=== PATIENT | male | born 1995 | race Caucasian/White ===

== ENCOUNTER 2017-02-20 10:33 | Emergency (ER) | payer BC ==
[~2017-02-20] VITALS: Ht 175.3 cm; Wt 67.0 kg
[2017-02-20 10:38] VITALS: BP 148/95; PULSE 90; RESP 16; TEMP 98.6; O2SAT 98
[2017-02-20] MEDS ORDERED: OXYMETAZOLINE HCL 0.05% 15 ML NASAL SPRAY NASAL ONE (10:45)
--- NOTE | 2017-02-20 10:50 | PD ---
HPI . Epistaxis Chief Complaint: Nosebleed Time Seen by Provider: 10:43 Travel History International Travel<30 days: No Contact w/Intl Traveler<30days: No History of Present Illness HPI This patient presents with a chief complaint of epistaxis. Onset was about 2 hours ago. He states that it started bleeding and then it stopped and then it started again. He was subsequently sent home from work. The nose is not currently bleeding. He denies any other symptoms. Symptoms have been mild. PFSH Social History Tobacco Use: No Allergies-Medications (Allergen,Severity, Reaction): Coded Allergies: No Known Allergies (Unverified , 02/20/17) Reported Meds & Prescriptions Reported Meds & Active Scripts Active No Active Prescriptions or Reported Medications Review of Systems Except as stated in HPI: all other systems reviewed are Neg HENT: Positive: Nosebleed Physical Exam Narrative GENERAL: Awake and alert and in no acute distress. SKIN: Warm and dry. No obvious rashes. HEAD: Normocephalic, atraumatic. EYES: Extraocular movements are intact. Pupils are equal. ENT: Fresh blood at Kiesselbach's plexus on the right. No active bleeding. NECK: Full range of motion. CARDIOVASCULAR: Regular rate and rhythm. RESPIRATORY: Nonlabored respirations. MUSCULOSKELETAL: No obvious trauma. NEUROLOGICAL: Awake and alert and fully oriented. Moves all 4 extremities equally. No lateralizing signs. PSYCHIATRIC: Appropriate mood and affect. Data Data Last Documented VS Vital Signs Date Time Temp Pulse Resp B/P (MAP) Pulse Ox O2 Delivery O2 Flow Rate FiO2 02/20/17 10:38 98.6 90 16 148/95 (112) 98 Room Air Orders Orders Oxymetazoline 0.05% Tino [place] (Afrin 0.0 (02/20/17 10:45) [facility] Medical Decision Making Medical Screen Exam Complete: Yes Emergency Medical Condition: Yes Differential Diagnosis Differential diagnosis includes but is not limited to epistaxis due to an upper respiratory infection, coagulopathy, local trauma, nasal fracture Narrative Course This patient presents with epistaxis. Active bleeding but recently noted at Kiesselbach's plexus. He will be treated with Afrin and observed. The epistaxis has been controlled with Afrin. Diagnosis Primary Impression: Epistaxis Patient Instructions: General Instructions, Nosebleed (ED) Departure Forms: Tests/Procedures, Work Release Enter return to work date: Feb 20, 2017 Scripts No Active Prescriptions or Reported Meds Disposition: 01 DISCHARGE HOME Condition: Stable Elvia Butcher MD Feb 20, 2017 10:50
== END 2017-02-20 11:35 | disposition home or self-care (01) ==
LOC: PHED 10:33
DX: R04.0 Epistaxis (principal)
CPT/HCPCS: 99282